=== PATIENT | female | born 2000 | race Caucasian/White ===

== ENCOUNTER 2022-03-12 12:16 | Emergency (ER) | payer BC ==
[2022-03-12 12:23] VITALS: RESP 18
[2022-03-12] MEDS ORDERED: SODIUM CHLORIDE 0.9% 500 ML 500 ML IV STA (12:32)
[2022-03-12 12:50] LABS: Basophils # (A) 0.1 k/uL (0-0.2); Basophils % (A) 0 %; Eosinophils # (A) 0.2 k/uL (0-0.7); Eosinophils % (A) 1 %; HCT 44.3 % (34.0-46.0); HGB 14.9 gm/dL (11.4-16.0); Lymphocytes # (A) 1.5 k/uL (1.0-4.8); Lymphocytes % (A) 12 %; MCH 29.6 pg (25.0-35.0); MCHC 33.7 g/dL (31.0-37.0); Mean Platelet Volume 7.3; Monocytes # (A) 0.4 k/uL (0-1.0); Monocytes % (A) 3 %; Neutrophils # (A) 9.9 k/uL (1.3-7.7); Neutrophils % (A) 82 %; Platelet Count 257 k/uL (150-450); RBC 5.03 m/uL (3.80-5.40); RDW 12.2 % (11.5-15.5); WBC 12.1 k/uL (3.8-10.6)
--- NOTE | 2022-03-12 13:01 | ED ---
Seizure HPI - General Source: patient, EMS, RN notes reviewed Mode of arrival: EMS Limitations: no limitations <Shree Lynn - Last Filed: 03/12/22 15:16> <Tyson Ortiz - Last Filed: 03/12/22 15:34> - General Chief Complaint: Seizure Stated Complaint: seizure Time Seen by Provider: 03/12/22 12:24 - History of Present Illness Initial Comments: This is a 22-year-old female presents emergency Department chief complaint of seizure. Patient was brought in via EMS patient states she was in her room on her phone this is lasting she remembers. Patient was found by mother stating that she was having a tonic-clonic seizure. Patient did have noted tongue injury. Patient was postictal per EMS. Patient has no specific complaint other than mild headache currently. (Shree Lynn) - Related Data Allergies Allergy/AdvReac Type Severity Reaction Status Date / Time No Known Allergies Allergy Verified 03/12/22 12:23 Review of Systems ROS Other: All systems not noted in ROS Statement are negative. <Shree Lynn - Last Filed: 03/12/22 15:16> ROS Other: All systems not noted in ROS Statement are negative. <Tyson Ortiz - Last Filed: 03/12/22 15:34> ROS Statement: Those systems with pertinent positive or pertinent negative responses have been documented in the HPI. Past Medical History Past Medical History: No Reported History Additional Past Medical History / Comment(s): Seizure 03/12/2022 History of Any Multi-Drug Resistant Organisms: None Reported Past Surgical History: No Surgical Hx Reported Past Psychological History: No Psychological Hx Reported Smoking Status: Former smoker Past Alcohol Use History: Occasional, Rare Past Drug Use History: Marijuana <Shree Lynn - Last Filed: 03/12/22 15:16> General Exam Limitations: no limitations General appearance: alert, in no apparent distress Head exam: Present: atraumatic, normocephalic, normal inspection Eye exam: Present: normal appearance, PERRL, EOMI. Absent: scleral icterus, conjunctival injection, periorbital swelling ENT exam: Present: mucous membranes moist. Absent: normal oropharynx (Distal tongue injury primarily on the right) Neck exam: Present: normal inspection, full ROM. Absent: tenderness, meningismus, lymphadenopathy Respiratory exam: Present: normal lung sounds bilaterally. Absent: respiratory distress, wheezes, rales, rhonchi, stridor Cardiovascular Exam: Present: regular rate, normal rhythm, normal heart sounds. Absent: systolic murmur, diastolic murmur, rubs, gallop, clicks GI/Abdominal exam: Present: soft, normal bowel sounds. Absent: distended, tenderness, guarding, rebound, rigid Neurological exam: Present: alert, oriented X3, CN II-XII intact, reflexes normal. Absent: motor sensory deficit Skin exam: Present: warm, dry, intact, normal color. Absent: rash <Shree Lynn - Last Filed: 03/12/22 15:16> Course Vital Signs 03/12/22 03/12/22 12:19 14:30 Pulse Rate 73 Respiratory 18 18 Rate Blood Pressure 133/95 131/77 O2 Sat by Pulse 98 98 Oximetry Medical Decision Making - Lab Data Result diagrams: 03/12/22 12:42 03/12/22 12:42 - EKG Data -: EKG Interpreted by Me <Shree Lynn - Last Filed: 03/12/22 15:16> - Lab Data Result diagrams: 03/12/22 12:42 03/12/22 12:42 <Tyson Ortiz - Last Filed: 03/12/22 15:34> - Lab Data Lab Results 03/12/22 03/12/22 03/12/22 Range/Units 12:42 12:42 14:54 WBC 12.1 H (3.8-10.6) k/uL RBC 5.03 (3.80-5.40) m/uL Hgb 14.9 (11.4-16.0) gm/dL Hct 44.3 (34.0-46.0) % MCV 88.0 (80.0-100.0) fL MCH 29.6 (25.0-35.0) pg MCHC 33.7 (31.0-37.0) g/dL RDW 12.2 (11.5-15.5) % Plt Count 257 (150-450) k/uL MPV 7.3 Neutrophils % 82 % Lymphocytes % 12 % Monocytes % 3 % Eosinophils % 1 % Basophils % 0 % Neutrophils # 9.9 H (1.3-7.7) k/uL Lymphocytes # 1.5 (1.0-4.8) k/uL Monocytes # 0.4 (0-1.0) k/uL Eosinophils # 0.2 (0-0.7) k/uL Basophils # 0.1 (0-0.2) k/uL Sodium 135 L (137-145) mmol/L Potassium 4.8 (3.5-5.1) mmol/L Chloride 110 H (98-107) mmol/L Carbon Dioxide 15 L (22-30) mmol/L Anion Gap 10 mmol/L BUN 16 (7-17) mg/dL Creatinine 0.83 (0.52-1.04) mg/dL Est GFR (CKD-EPI)AfAm >90 (>60 ml/min/1.73 sqM) Est GFR (CKD-EPI)NonAf >90 (>60 ml/min/1.73 sqM) Glucose 233 H (74-99) mg/dL Calcium 9.0 (8.4-10.2) mg/dL Magnesium 2.0 (1.6-2.3) mg/dL Total Bilirubin 0.7 (0.2-1.3) mg/dL AST 32 (14-36) U/L ALT 26 (4-34) U/L Alkaline Phosphatase 73 (38-126) U/L Total Protein 7.1 (6.3-8.2) g/dL Albumin 4.3 (3.5-5.0) g/dL Urine Color Light Yellow Urine Appearance Cloudy H (Clear) Urine pH 6.5 (5.0-8.0) Ur Specific [place] 1.015 (1.001-1.035) Urine Protein Trace H (Negative) Urine Glucose (UA) 3+ H (Negative) Urine Ketones 1+ H (Negative) Urine Blood Negative (Negative) Urine Nitrite Negative (Negative) Urine Bilirubin Negative (Negative) Urine Urobilinogen <2.0 (<2.0) mg/dL Ur Leukocyte Esterase Negative (Negative) Urine RBC <1 (0-5) /hpf Urine WBC 2 (0-5) /hpf Ur Squamous Epith Cells 6 H (0-4) /hpf Amorphous Sediment Rare H (None) /hpf Urine Bacteria Occasional H (None) /hpf Urine Mucus Few H (None) /hpf Urine HCG, Qual (Not Detectd) 10/31/22 Range/Units 14:54 WBC (3.8-10.6) k/uL RBC (3.80-5.40) m/uL Hgb (11.4-16.0) gm/dL Hct (34.0-46.0) % MCV (80.0-100.0) fL MCH (25.0-35.0) pg MCHC (31.0-37.0) g/dL RDW (11.5-15.5) % Plt Count (150-450) k/uL MPV Neutrophils % % Lymphocytes % % Monocytes % % Eosinophils % % Basophils % % Neutrophils # (1.3-7.7) k/uL Lymphocytes # (1.0-4.8) k/uL Monocytes # (0-1.0) k/uL Eosinophils # (0-0.7) k/uL Basophils # (0-0.2) k/uL Sodium (137-145) mmol/L Potassium (3.5-5.1) mmol/L Chloride (98-107) mmol/L Carbon Dioxide (22-30) mmol/L Anion Gap mmol/L BUN (7-17) mg/dL Creatinine (0.52-1.04) mg/dL Est GFR (CKD-EPI)AfAm (>60 ml/min/1.73 sqM) Est GFR (CKD-EPI)NonAf (>60 ml/min/1.73 sqM) Glucose (74-99) mg/dL Calcium (8.4-10.2) mg/dL Magnesium (1.6-2.3) mg/dL Total Bilirubin (0.2-1.3) mg/dL AST (14-36) U/L ALT (4-34) U/L Alkaline Phosphatase (38-126) U/L Total Protein (6.3-8.2) g/dL Albumin (3.5-5.0) g/dL Urine Color Urine Appearance (Clear) Urine pH (5.0-8.0) Ur Specific [place] (1.001-1.035) Urine Protein (Negative) Urine Glucose (UA) (Negative) Urine Ketones (Negative) Urine Blood (Negative) Urine Nitrite (Negative) Urine Bilirubin (Negative) Urine Urobilinogen (<2.0) mg/dL Ur Leukocyte Esterase (Negative) Urine RBC (0-5) /hpf Urine WBC (0-5) /hpf Ur Squamous Epith Cells (0-4) /hpf Amorphous Sediment (None) /hpf Urine Bacteria (None) /hpf Urine Mucus (None) /hpf Urine HCG, Qual Not Detected (Not Detectd) - EKG Data EKG Comments: EKG interpreted by me at 12.37 sinus rhythm rate of 61. 139 QRS 80 QT/QTC 377/380 (Shree Lynn) Disposition Is patient prescribed a controlled substance at d/c from ED?: No Time of Disposition: 15:16 <Shree Lynn - Last Filed: 03/12/22 15:16> <Tyson Ortiz - Last Filed: 03/12/22 15:34> Clinical Impression: Generalized seizure, New onset seizure Disposition: HOME SELF-CARE Condition: Stable Instructions (If sedation given, give patient instructions): Seizure/Epilepsy Discharge Instructions & Follow-Up Additional Instructions: Please return to the Emergency Department if symptoms worsen or any other concerns. Referrals: None,Stated [Primary Care Provider] - 1-2 days
[2022-03-12 13:07] LABS: ALT 26 U/L (4-34); AST 32 U/L (14-36); African American GFR (CKD) >90 (>60 ml/min/1.73 sqM); Albumin 4.3 g/dL (3.5-5.0); Alkaline Phosphatase 73 U/L (38-126); Anion Gap 10 mmol/L; Blood Urea Nitrogen 16 mg/dL (7-17); Carbon Dioxide 15 mmol/L (22-30); Chloride 110 mmol/L (98-107); Glucose 233 mg/dL (74-99); Non-African American GFR(CKD) >90 (>60 ml/min/1.73 sqM); Potassium 4.8 mmol/L (3.5-5.1); Sodium 135 mmol/L (137-145); Total Bilirubin 0.7 mg/dL (0.2-1.3); Total Protein 7.1 g/dL (6.3-8.2)
[2022-03-12 14:37] VITALS: PULSE 73
--- NOTE | 2022-03-12 14:42 | CT ---
EXAMINATION TYPE: CT brain wo con DATE OF EXAM: 03/12/2022 COMPARISON: None. HISTORY: Seizure, fall. Memory loss after injury. CT DLP: 1102.5 mGycm. Automated Exposure Control for Dose Reduction was Utilized. TECHNIQUE: CT scan of the head is performed without contrast. FINDINGS: There is no acute intracranial hemorrhage, mass effect, or midline shift identified. The ventricles and sulci are within normal limits in size. Cohen-white matter differentiation is maintain ed. The calvarium is intact. The globes are intact and the visualized sinuses are clear. IMPRESSION: No acute intracranial hemorrhage or midline shift is seen.
[2022-03-12] MEDS ORDERED: KETOROLAC 15 MG/ML 1 ML VIAL IVP STA (14:44)
[2022-03-12 15:14] LABS: Amorphous Sediment,Urine Rare /hpf; Appearance,Urine Cloudy (Clear); Bacteria,Urine Occasional /hpf; Bilirubin,Urine Negative (Negative); Blood,Urine Negative (Negative); Color,Urine Light Yellow; Glucose,Urine (UA) 3+ (Negative); Ketones,Urine 1+ (Negative); Leukocyte Esterase,Urine Negative (Negative); Mucus,Urine Few /hpf; Nitrite,Urine Negative (Negative); PH, Urine 6.5 (5.0-8.0); Protein,Urine Trace (Negative); RBC,Urine <1 /hpf (0-5); Specific Gravity,Urine 1.015 (1.001-1.035); Squamous Epithelial Cell,Urine 6 /hpf (0-4); Urobilinogen,Urine <2.0 mg/dL (<2.0); WBC,Urine 2 /hpf (0-5)
[2022-03-12 15:48] VITALS: BP 126/67; TEMP 98.1
== END 2022-03-12 15:48 | disposition home or self-care (01) ==
LOC: EC 12:16
DX: R56.9 Unspecified convulsions (principal); Z87.891 Personal history of nicotine dependence
CPT/HCPCS: 36415; 93005; 80053; 83735; 85025; 81001; 81025; 83036; 70450; 99285; 96374; 96361; J1885

== ENCOUNTER 2022-03-13 01:51 | Inpatient (IN) | payer BC ==
[2022-03-13] MEDS ORDERED: levETIRAcetam IV 1,000 MG in SALINE 1 100ML.BAG IVPB STA (02:17)
[2022-03-13] MEDS ORDERED: ONDANSETRON 4 MG/2 ML VIAL IVP PRN (02:17)
[2022-03-13] MEDS ORDERED: NALOXONE 0.4 MG/ML 1 ML VIAL IV PRN (02:17)
[2022-03-13] MEDS ORDERED: SODIUM CHLORIDE 0.9% 1,000 ML IV STA (02:17)
--- NOTE | 2022-03-13 02:24 | ED ---
Seizure HPI - General Chief Complaint: Seizure Stated Complaint: Seizure Time Seen by Provider: 03/13/22 02:04 Source: EMS, RN notes reviewed, old records reviewed Mode of arrival: EMS Limitations: no limitations - History of Present Illness Initial Comments: This is a 22-year-old female to the emergency department for evaluation patient Dese for evaluation regards seizure this is new onset seizure for this patient she had a seizure earlier today as well. A she does not take any medications does not do drugs or alcohol no history of head trauma or injury. Patient denying her current headache or fever. MD Complaint: seizure, loss of consciousness, shaking -: minutes(s) Description of Episode: loss of consciousness, tonic-clonic movement, post-event confusion -: second(s) Witnessed: yes - by bystander Trauma: Yes Seizure History: known seizure disorder Place: home Possible Precipitating Event: none Associated Symptoms: denies other symptoms Treatments Prior to Arrival: none - Related Data Allergies Allergy/AdvReac Type Severity Reaction Status Date / Time No Known Allergies Allergy Verified 03/13/22 01:53 Review of Systems ROS Statement: Those systems with pertinent positive or pertinent negative responses have been documented in the HPI. ROS Other: All systems not noted in ROS Statement are negative. Past Medical History Past Medical History: No Reported History Additional Past Medical History / Comment(s): Seizure 03/12/2022 History of Any Multi-Drug Resistant Organisms: None Reported Past Surgical History: No Surgical Hx Reported Past Psychological History: No Psychological Hx Reported Smoking Status: Vaper Past Alcohol Use History: Occasional, Rare Past Drug Use History: Marijuana General Exam Limitations: no limitations General appearance: alert, in no apparent distress Head exam: Present: atraumatic, normocephalic, normal inspection Eye exam: Present: normal appearance, PERRL, EOMI. Absent: scleral icterus, conjunctival injection, periorbital swelling ENT exam: Present: normal exam, mucous membranes moist Neck exam: Present: normal inspection. Absent: tenderness, meningismus, lymphadenopathy Respiratory exam: Present: normal lung sounds bilaterally. Absent: respiratory distress, wheezes, rales, rhonchi, stridor Cardiovascular Exam: Present: regular rate, normal rhythm, normal heart sounds. Absent: systolic murmur, diastolic murmur, rubs, gallop, clicks GI/Abdominal exam: Present: soft, normal bowel sounds. Absent: distended, tenderness, guarding, rebound, rigid Extremities exam: Present: normal inspection, full ROM, normal capillary refill. Absent: tenderness, pedal edema, joint swelling, calf tenderness Back exam: Present: normal inspection Neurological exam: Present: alert, oriented X3, CN II-XII intact Psychiatric exam: Present: normal affect, normal mood Skin exam: Present: warm, dry, intact, normal color. Absent: rash Course Vital Signs 03/13/22 01:54 Temperature 97.9 F Pulse Rate 85 Respiratory 16 Rate Blood Pressure 120/90 O2 Sat by Pulse 98 Oximetry - Reevaluation(s) Reevaluation #1: 03/13/22 02:22 Medical records reviewed Reevaluation #2: 03/13/22 02:22 Patient informed results and questions answered Reevaluation #3: 03/13/22 02:22 No recurrent seizure here in the ER - Consultations Consultation #1: Spoke with admitting physicians, greater admit the patient Medical Decision Making - Medical Decision Making 22 female with her second seizure today. Patient presents today for evaluation regarding seizure. Patient be admitted for new onset seizure and neurology evaluation and treatment Disposition Clinical Impression: Status epilepticus, New onset seizure, Generalized seizure Disposition: ADMITTED IP TO THIS HOSP Condition: Fair Instructions (If sedation given, give patient instructions): Seizure/Epilepsy Discharge Instructions & Follow-Up Is patient prescribed a controlled substance at d/c from ED?: No Referrals: None,Stated [Primary Care Provider] - 1-2 days Time of Disposition: 02:45
[2022-03-13 02:45] LABS: Basophils # (A) 0.1 k/uL (0-0.2); Basophils % (A) 0 %; Eosinophils # (A) 0.1 k/uL (0-0.7); Eosinophils % (A) 0 %; HCT 44.7 % (34.0-46.0); HGB 14.6 gm/dL (11.4-16.0); Lymphocytes # (A) 1.6 k/uL (1.0-4.8); Lymphocytes % (A) 8 %; MCH 29.1 pg (25.0-35.0); MCHC 32.8 g/dL (31.0-37.0); Monocytes # (A) 0.9 k/uL (0-1.0); Monocytes % (A) 4 %; Neutrophils # (A) 16.5 k/uL (1.3-7.7); Neutrophils % (A) 86 %; Platelet Count 243 k/uL (150-450); RBC 5.02 m/uL (3.80-5.40); RDW 12.2 % (11.5-15.5); WBC 19.3 k/uL (3.8-10.6)
[2022-03-13 03:26] LABS: ALT 28 U/L (4-34); AST 49 U/L (14-36); Acetaminophen <10.0 ug/mL; African American GFR (CKD) >90 (>60 ml/min/1.73 sqM); Albumin 4.4 g/dL (3.5-5.0); Alcohol <10 mg/dL; Alkaline Phosphatase 63 U/L (38-126); Anion Gap 17 mmol/L; Blood Urea Nitrogen 12 mg/dL (7-17); Calcium 8.8 mg/dL (8.4-10.2); Carbon Dioxide 11 mmol/L (22-30); Chloride 106 mmol/L (98-107); Glucose 185 mg/dL (74-99); Magnesium 2.1 mg/dL (1.6-2.3); Non-African American GFR(CKD) >90 (>60 ml/min/1.73 sqM); Salicylate <1.0 mg/dL; Sodium 134 mmol/L (137-145); Total Bilirubin 0.9 mg/dL (0.2-1.3); Total Protein 7.6 g/dL (6.3-8.2)
[2022-03-13 04:36] LABS: Potassium 4.8 mmol/L (3.5-5.1)
[2022-03-13 09:21] LABS: Appearance,Urine Clear (Clear); Bilirubin,Urine Negative (Negative); Blood,Urine Negative (Negative); Color,Urine Light Yellow; Glucose,Urine (UA) Negative (Negative); Ketones,Urine 2+ (Negative); Leukocyte Esterase,Urine Negative (Negative); Nitrite,Urine Negative (Negative); PH, Urine 5.5 (5.0-8.0); Protein,Urine Negative (Negative); Urobilinogen,Urine <2.0 mg/dL (<2.0)
[2022-03-13 09:31] LABS: Amphetamine Screen,Urine Not Detected (NotDetected); Barbiturate Screen,Urine Not Detected (NotDetected); Benzodiazepines Screen,Urine Not Detected (NotDetected); Cocaine Screen,Urine Not Detected (NotDetected); Methadone Screen, Urine Not Detected (NotDetected); Opiate Screen,Urine Not Detected (NotDetected); Oxycodone Screen, Urine Not Detected (NotDetected); Phencyclidine Screen,Urine Not Detected (NotDetected); Tricyclic Antidepressant,Urine Not Detected (NotDetected); Urn Cannabinoid Scrn Detected (NotDetected)
[2022-03-13] MEDS ORDERED: KETOROLAC 15 MG/ML 1 ML VIAL IVP PRN (11:46)
--- NOTE | 2022-03-13 12:07 | EEG ---
ELECTROENCEPHALOGRAM REPORT PREAMBLE: This is a 22-year-old female with new onset seizure. EEG FINDINGS: This is a 21-channel digital EEG recorded with video component, utilizing 10/20 international system with referential and bipolar montages. Background consists of well developed, well regulated moderate voltage activity in 9 to 10 hertz alpha. Background is posterior dominant and reactive to eye opening and closing. The frequent movement artifact was seen during the study. Hyperventilation revealed no abnormalities. Photic driving response was not seen. Some drowsiness was seen with appearance of bilaterally symmetric theta frequency rhythm. Deeper stages of sleep were not seen. Some intermittent bitemporal dysrhythmic theta, with occasional sharply contoured waves seen on the left side. No clearcut epileptiform activity was seen. EKG channel showed no obvious arrhythmia. IMPRESSION: This is a borderline abnormal EEG due to presence of intermittent dysrhythmic theta seen in bitemporal region, with rare sharply contoured waves on the left side. This suggests focal cortical neuronal dysfunction. Recommend prolonged, sleep- deprived EEG. MMODL / IJN: [id number] / [facility]
--- NOTE | 2022-03-13 12:36 | P.HPIM ---
History of Present Illness Patient is a pleasant 22-year-old female came in with the comments of seizure patient had 2 similar episodes although there was no evidence of tonic-clonic activity that was witnessed by the family members patient doesn't know anything anything of what happened. Patient woke up in the ambulance. History was often from the mother as well and patient apparently had a loss bladder incontinence and does have tongue biting. Patient was confused and post ictal for few hours after the episode. Patient doesn't have any history of seizures denied any childhood history of seizures. Patient does have anion gap probably been second tonya to lactic acidosis although lactic acid was never obtain any her serum sodium is 134. Patient does have history of marijuana use denied any other drug abuse or alcohol use. REVIEW OF SYSTEMS: CONSTITUTIONAL: No fever, no malaise, no fatigue. HEENT: No recent visual problems or hearing problems. Denied any sore throat. CARDIOVASCULAR: No chest pain, orthopnea, PND, no palpitations, no syncope. PULMONARY: No shortness of breath, no cough, no hemoptysis. GASTROINTESTINAL: No diarrhea, no nausea, no vomiting, no abdominal pain. NEUROLOGICAL: No headaches, no weakness, no numbness. HEMATOLOGICAL: Denies any bleeding or petechiae. GENITOURINARY: Denies any burning micturition, frequency, or urgency. MUSCULOSKELETAL/RHEUMATOLOGICAL: Denies any joint pain, swelling, or any muscle pain. ENDOCRINE: Denies any polyuria or polydipsia. The rest of the 14-point review of systems is negative. PHYSICAL EXAMINATION: GENERAL: The patient is alert and oriented x3, not in any acute distress. Well developed, well nourished. HEENT: Pupils are round and equally reacting to light. EOMI. No scleral icterus. No conjunctival pallor. Normocephalic, atraumatic. No pharyngeal erythema. No thyromegaly. CARDIOVASCULAR: S1 and S2 present. No murmurs, rubs, or gallops. PULMONARY: Chest is clear to auscultation, no wheezing or crackles. ABDOMEN: Soft, nontender, nondistended, normoactive bowel sounds. No palpable organomegaly. MUSCULOSKELETAL: No joint swelling or deformity. EXTREMITIES: No cyanosis, clubbing, or pedal edema. NEUROLOGICAL: Gross neurological examination did not reveal any focal deficits. SKIN: No rashes. Assessment and plan -New-onset seizures patient probably has a primary seizure disorder patient underwent EEG results of which are pending will be evaluated with neurology patient was given a dose of Keppra may need to be discharged on Keppra. If jesica red by neurology without any further workup patient will be discharged today to follow up with neurology as an outpatient to continue further workup as an outpatient. -Anion gap metabolic acidosis secondary to lactic acidosis most probably secondary to seizures. -Leukocytosis reactive secondary to seizure -Hyponatremia secondary to hypovolemia patient is receiving IV fluids DVT prophylaxis: Early ambulation Past Medical History Past Medical History: No Reported History Additional Past Medical History / Comment(s): Seizure 03/12/2022 History of Any Multi-Drug Resistant Organisms: None Reported Past Surgical History: No Surgical Hx Reported Past Psychological History: No Psychological Hx Reported Smoking Status: Vaper Past Alcohol Use History: Occasional, Rare Past Drug Use History: Marijuana - Past Family History Father Family Medical History: Myocardial Infarction ([place]) Additional Family Medical History / Comment(s): MULTIPLE HEART ATTACKS Medications and Allergies Home Medications Medication Instructions Recorded Confirmed Type No Known Home Medications 03/13/22 03/13/22 History Allergies Allergy/AdvReac Type Severity Reaction Status Date / Time No Known Allergies Allergy Verified 03/13/22 07:39 Physical Exam Vitals: Vital Signs Temp Pulse Pulse Resp BP BP Pulse Ox 03/13/22 07:58 98.6 F 93 18 104/56 98 03/13/22 04:15 18 03/13/22 02:44 75 18 114/86 98 03/13/22 01:54 97.9 F 85 16 120/90 98 Intake and Output 03/12/22 03/13/22 03/13/22 22:59 06:59 14:59 Intake Total 200 Balance 200 Intake: Oral 200 Other: Voiding Method Toilet # Voids 1 # Bowel Movements 0 Weight 77.111 kg Results CBC & Chem 7: 03/13/22 02:23 03/13/22 02:23 Labs: Abnormal Lab Results - Last 24 Hours (Table) 03/13/22 03/13/22 03/13/22 Range/Units 02:23 02:23 09:09 WBC 19.3 H (3.8-10.6) k/uL Neutrophils # 16.5 H (1.3-7.7) k/uL Sodium 134 L (137-145) mmol/L Carbon Dioxide 11 L (22-30) mmol/L Glucose 185 H (74-99) mg/dL AST 49 H (14-36) U/L Urine Ketones 2+ H (Negative) U Marijuana (THC) Screen Detected H (NotDetected)
--- NOTE | 2022-03-13 13:59 | P.CNNES ---
History of Present Illness Consult date: 03/13/22 Requesting physician: Tyson Casiano Reason for Consult: New seizure History of Present Illness: Patient is a 22-year-old right-handed female came to the hospital by ambulance early this morning at 1:51 AM for a second seizure. Patient had her first seizure yesterday at 11 AM while she was sleeping. She woke up in the hospital. Patient's mother states that she heard a fall and when she went in, patient was having a tonic-clonic seizure, that lasted for 1-2 minutes. She had fallen off, and hit head-on side of the bed. Patient's mother was not sure, if she was standing, or she just fell off the bed from the seizure. She was brought to the hospital by ambulance. She had computed tomography scan of the head, observed and then sent home to follow-up with a neurologist. However early this morning at around 1:20 AM, she had a second seizure. Patient's mother heard a fall and then she went in, she was having a seizure, that lasted for about a minute. Patient did bite her tongue and lost control of urine with both of these seizures. Patient states that she woke up in the ambulance with his current seizure. Patient's mother states that this second seizure was milder as compared to the first one yesterday. As per EMS flow sheet, when they arrived, patient's mother mentioned that patient had a seizure approximately 10-15 minutes prior to EMS arrival. This is a second seizure the patient has experienced today. She was discharged from the ER earlier. When EMS arrived, patient was in a postictal state. Patient began acting appropriately after oxygen was given although she did seem agitated. Crew found marijuana/pipe next to patient's bed, when asked about drug use, patient denied use. Patient's blood pressure was 107/52 pulse rate 84 respiration 18 saturation 98% and blood sugar 175. Patient's blood test shows CBC 19.3 hemoglobin 14.6 platelets are normal. Sodium 134 potassium 4.8, normal renal functions. AST is 49, ALT 28. UA is negative. Urine drug screen positive for marijuana. Blood alcohol level is less than 10. Hemoglobin A1c 5.8. CT head showed no acute intracranial hemorrhage or midline shift. I personally reviewed CT head, agree with the findings. EKG shows sinus rhythm with sinus arrhythmia. Patient does not take any medication at home. Patient denies any history of concussion. No fever or chills. Patient has a 28-year-old sister, who had seizures about 2 or 3 when she was age 13. She was placed on medication for some time and was taken off. She has not had any seizures since then, currently not on any seizure medication. No other family members with seizure. Patient vapes tobacco and one last for about 3 weeks. She has been smoking marijuana since seventh grade. She smokes about 1 g a day. She denies any change in the brand of for marijuana. Never use any prescription medication or any other drugs. She drinks alcohol very occasionally. Review of Systems Constitutional: Denies chills, Denies fever Eyes: denies blurred vision, denies pain Ears, nose, mouth and throat: Denies headache, Denies sore throat Cardiovascular: Denies chest pain, Denies shortness of breath Respiratory: Denies cough, Denies wheezing Gastrointestinal: Denies abdominal pain, Denies diarrhea, Denies nausea, Denies vomiting Genitourinary: Denies dysuria, Denies hematuria Musculoskeletal: Denies myalgias Integumentary: Denies pruritus, Denies rash Neurological: Reports as per HPI, Denies balance difficulties, Denies confusion, Denies memory loss, Denies visual changes Psychiatric: Denies anxiety, Denies depression Endocrine: Denies fatigue, Denies weight change Hematologic/Lymphatic: Denies easy bruising Allergic/Immunologic: Denies gluten intolerance Past Medical History Past Medical History: No Reported History Additional Past Medical History / Comment(s): Seizure 03/12/2022 History of Any Multi-Drug Resistant Organisms: None Reported Past Surgical History: No Surgical Hx Reported Past Psychological History: No Psychological Hx Reported Smoking Status: Vaper Past Alcohol Use History: Occasional, Rare Past Drug Use History: Marijuana - Past Family History Father Family Medical History: Myocardial Infarction ([place]) Additional Family Medical History / Comment(s): MULTIPLE HEART ATTACKS Medications and Allergies Home Medications Medication Instructions Recorded Confirmed Type No Known Home Medications 03/13/22 03/13/22 History Allergies Allergy/AdvReac Type Severity Reaction Status Date / Time No Known Allergies Allergy Verified 03/13/22 07:39 Physical Examination - Vital Signs Vital Signs: Vital Signs Temp Pulse Pulse Resp BP BP Pulse Ox 03/13/22 07:58 98.6 F 93 18 104/56 98 03/13/22 04:15 18 03/13/22 02:44 75 18 114/86 98 03/13/22 01:54 97.9 F 85 16 120/90 98 Intake and Output 03/12/22 03/13/22 03/13/22 22:59 06:59 14:59 Intake Total 200 Balance 200 Intake: Oral 200 Other: Voiding Method Toilet # Voids 1 # Bowel Movements 0 Weight 77.111 kg Patient is a young female, very pleasant in no acute distress. Patient is alert awake oriented to time place and person. Speech and language functions are normal. Patient can name and repeat very well. No aphasia or dysarthria. Attention, concentration and fund of knowledge is adequate. On cranial nerve examination, pupils are equal, round and reacting to light, visual espinal are full on confrontation, with no neglect on double simultaneous stimulation. Extraocular muscles are intact with no nystagmus. Face is symmetric, tongue protrudes to the midline. Palatal elevation and sensation normal, hearing and shoulder shrug normal, facial sensation normal. There is evidence of tongue bite sindy on the right side. On muscle strength testing, there is no pronator drift and the strength is normal in arms and legs distally and proximally. Deep tendon reflexes are symmetric 1 at the biceps, 1 brachioradialis, 2 at the knees, 1+ ankles and plantars downgoing bilaterally. Sensory to touch is equal with no neglect on double simultaneous stimulation. Cerebellar function showed no ataxia for paexmz-cd-ygdg testing. No dysdiadochokinesia. No ataxia for nnrp-be-leod testing on either side. Tone and bulk of muscles normal. Gait deferred.. On general examination, there is no carotid bruit or murmur, S1-S2 audible. Chest is clear on consultation. Abdomen is soft nontender. No organomegaly, bowel sounds present. Peripheral pulses are present. No edema. Results - Laboratory Findings CBC and BMP: 03/13/22 02:23 03/13/22 02:23 Abnormal Lab Findings: Abnormal Labs 03/13/22 03/13/22 03/13/22 02:23 02:23 09:09 WBC 19.3 H Neutrophils # 16.5 H Sodium 134 L Carbon Dioxide 11 L Glucose 185 H AST 49 H Urine Ketones 2+ H U Marijuana (THC) Screen Detected H Assessment and Plan Assessment: * New onset seizure, unclear etiology. Possible idiopathic, rule out secondary causes. No obvious provoking factor identified. * Family history of seizure in her sister at her age 13, now in remission. * Marijuana use * Vaping Plan: * Patient had an EEG performed today, which was mildly abnormal because of intermittent bitemporal L>R dysrhythmic theta, with rare sharp-appearing waves on the left side. This may suggest focal cortical neuronal dysfunction. Recommend prolonged EEG for further evaluation. * MRI of the brain with and without contrast rule out secondary causes. * Patient will be started on Keppra 500 mg twice a day. Recommend patient follow up with neurologist as an outpatient. * Patient informed of [place] state law of no driving unless seizure free for 6 months, climbing ladders or operating dangerous machinery. * Neurologically clear, if the MRI comes back negative. Discussed with primary team. Thank you for the consult. Time with Patient: Greater than 30
[2022-03-13] MEDS: levETIRAcetam 500 MG TAB PO SCH ×2 (16:33→23:47)
[2022-03-13] MEDS: FAMOTIDINE 20 MG TAB PO SCH (23:47)
[2022-03-13] MEDS: SODIUM CHLORIDE 0.9% 1,000 ML IV SCH ×2 (23:48→23:49)
[2022-03-14] MEDS: SODIUM CHLORIDE 0.9% 1,000 ML IV SCH (06:32)
[2022-03-14] MEDS: levETIRAcetam 500 MG TAB PO SCH (07:42)
[2022-03-14] MEDS: FAMOTIDINE 20 MG TAB PO SCH (07:42)
[2022-03-14 09:35] VITALS: BP 130/66; PULSE 64; RESP 17; TEMP 98.2
--- NOTE | 2022-03-14 11:15 | MR ---
EXAMINATION TYPE: MR brain wo/w con DATE OF EXAM: 03/14/2022 COMPARISON: CT brain March 12, 2022 HISTORY: New onset seizure. TECHNIQUE: Multiplanar, multisequence images of the brain and brainstem is performed without and with IV contras t, utilizing 7.5 mL intravenous Gadavist . FINDINGS: Diffusion weighted images demonstrate no evidence of a recent infarct or other diffusion ab normality. There is no extra-axial fluid collection or significant white matter signal abnormality. The ventricular system and cisternal spaces are normal in size and appearance. The brain volume is age appropriate. T2 Star weighted images show no suspicious intraparenchymal blood product. T2 taylor l weighted images show hippocampal gyri to appear symmetric and felt within normal limits. Midline structures demonstrate normal morphology. The craniocervical junction appears within normal limits. Post contrast images demonstrate no abnormal enhancing masses. There is asymmetric left-side d inferior temporal vessel axial image 5 thought to reflect incidental venous angioma. The dural veno us sinuses appear patent. The visualized sinuses are clear and the globes are intact. Patchy fluid ri ght mastoid air cells is present. Correlate clinically to exclude right-sided mastoiditis. IMPRESSION: No suspicious mass or abnormal parenchymal area in the brain identified to account for pa tient symptoms of new onset seizures
--- NOTE | 2022-03-16 09:49 | P.DS ---
Providers Date of admission: 03/13/22 02:17 Expected date of discharge: 03/14/22 Attending physician: Beverly Rushing Consults: 03/13/22 02:17 Consult Physician Routine Consulting Provider: Servando Salazar Consult Reason/Comments: [place] Do you want consulting provider notified?: Yes Primary care physician: Stated None Hospital Course: Final diagnosis New onset seizures, patient probably has a primary seizure disorder and undergoing neurological workup. MRI was negative Anion gap metabolic acidosis secondary to lactic acidosis, secondary to seizures leukocytosis, reactive secondary to seizures hyponatremia secondary to hypovolemia, improved DVT prophylaxis Full code Discharge disposition Patient is being discharged in a stable condition with guarded prognosis to home . Patient will follow-up with Dr. Leo in the outpatient setting upon discharge. Patient is to also follow-up with neurology as scheduled. Patient will continue on Keppra 500 mg twice daily until follow-up with neurology. Total time taken is greater than 35 minutes. Hospital course This is a 22-year-old female who was recently admitted with seizure new onset witnessed by family members and was being closely monitored. Patient underwent neurological evaluation including MRI of the brain which was negative for any acute process. Patient was started on Keppra 500 mg twice daily and will continue until outpatient follow-up with neurology. EEG was abnormal in the presence of intermittent dysrhythmic theta suggesting focal cortical neuronal dysfunction recommending prolonged EEG in the outpatient setting. Neurology has cleared the patient for discharge recommending follow-up in the next 1-2 weeks. No further seizure-like activity noted during hospitalization. Patient reports to feeling well and would like to go home. Currently no reports of chest pain, shortness of breath, or palpitations. Patient is afebrile. No reports of nausea or vomiting and patient is tolerating diet. Patient will be discharged home today. Physical exam: Gen: This is a 22-year-old female awake, alert and oriented 3, well-developed, well-nourished HEENT: Head is atraumatic, normocephalic. Pupils equal, round. Sclerae is anicteric. NECK: Supple. No JVD. No lymphadenopathy. No thyromegaly. LUNGS: Clear to auscultation. No wheezes or rhonchi. No intercostal retractions. HEART: Regular rate and rhythm. No murmur. ABDOMEN: Soft. Bowel sounds are present. No masses. No tenderness. EXTREMITIES: No pedal edema. No calf tenderness. NEUROLOGICAL: Patient is awake, alert and oriented x3. Cranial nerves 2 through 12 are grossly intact. Please refer to medication reconciliation sheet for a list of medications. The impression and plan of care has been dictated by Roz Clifford, Nurse Practitioner as directed. Dr. Sulema MD I have performed a history and examination and MDM of this patient, discussed the same with the dictator, and agree with the dictator's assessment and plan as written ,documented as a scribe. Based on total visit time, I have performed more than 50% of the visit. Patient Condition at Discharge: Stable Plan - Discharge Summary Discharge Rx Participant: No New Discharge Prescriptions: New levETIRAcetam [Keppra] 500 mg PO Q12HR 30 Days #60 tab Discharge Medication List levETIRAcetam [Keppra] 500 mg PO Q12HR 30 Days #60 tab 03/14/22 [Rx] Follow up Appointment(s)/Referral(s): Abdiaziz Wright MD [REFERRING] - 1 Week Dalila Leo MD [STAFF PHYSICIAN] - 1 Week Patient Instructions/Handouts: Seizure/Epilepsy Discharge Instructions & Follow-Up Activity/Diet/Wound Care/Special Instructions: Activity Limited until follow-up Follow-up with primary care provider on discharge Follow-up with neurology in 1-2 weeks Continue taking medications as prescribed Discharge Disposition: HOME SELF-CARE
== END 2022-03-14 13:00 | disposition home or self-care (01) | DRG 101 ==
LOC: EC 01:51 → 4SSUR 02:17
PROVIDERS: ADMIT Hospitalist; ATTEND Hospitalist
PROC: 4A10X4Z Monitoring of Central Nervous Electrical Activity, External Approach (ICD-10-PCS; principal; 2022-03-13)
DX: G40.401 Other generalized epilepsy and epileptic syndromes, not intractable, with status epilepticus (principal); E87.20 Acidosis, unspecified; E87.1 Hypo-osmolality and hyponatremia; F17.290 Nicotine dependence, other tobacco product, uncomplicated; E86.1 Hypovolemia; F12.90 Cannabis use, unspecified, uncomplicated; D72.829 Elevated white blood cell count, unspecified; R32 Unspecified urinary incontinence; Z82.49 Family history of ischemic heart disease and other diseases of the circulatory system
CPT/HCPCS: 36415; 70553; 80053; 80143; 80179; 80306; 80320; 81003; 83735; 85025; 93005; 95816; 96361; 96374; 99285

== ENCOUNTER 2024-06-07 23:45 | Emergency (ER) | payer BC ==
--- NOTE | 2024-06-07 23:56 | ED ---
Seizure HPI - General Chief Complaint: Seizure Stated Complaint: Seizures Time Seen by Provider: 06/07/24 23:56 Source: patient, RN notes reviewed, old records reviewed Mode of arrival: ambulatory Limitations: no limitations - History of Present Illness Initial Comments: This is a 24-year-old female to the ER for evaluation of seizure with headache. Patient states she has had seizure-like activity throughout the day after the seizure she states she does feel to feel numbness and tingling on her right side may be a new finding for this patient. Patient's been taking all seizure medication to break as prescribed. Patient is on Keppra. She has had seizure diagnosis for about 2 years and an increase in seizure medication dosing around 8 months ago. Otherwise no recent illnesses no other complaints no fevers head injury patient does admit to marijuana no other drugs or alcohol MD Complaint: seizure, shaking -: hour(s) Description of Episode: loss of consciousness, bladder incontinence, post-event confusion -: second(s) Witnessed: yes - by bystander Trauma: Yes Seizure History: known seizure disorder Place: home Possible Precipitating Event: none Associated Symptoms: denies other symptoms - Related Data Previous Rx's Medication Instructions Recorded levETIRAcetam [Keppra] 500 mg PO Q12HR 30 Days #60 tab 03/14/22 Allergies Allergy/AdvReac Type Severity Reaction Status Date / Time No Known Allergies Allergy Verified 06/07/24 23:52 Review of Systems ROS Statement: Those systems with pertinent positive or pertinent negative responses have been documented in the HPI. ROS Other: All systems not noted in ROS Statement are negative. Past Medical History Past Medical History: No Reported History Additional Past Medical History / Comment(s): Seizure 03/12/2022 History of Any Multi-Drug Resistant Organisms: None Reported Past Surgical History: No Surgical Hx Reported Past Psychological History: No Psychological Hx Reported Smoking Status: Vaper Past Alcohol Use History: Occasional, Rare Past Drug Use History: Marijuana - Past Family History Father Family Medical History: Myocardial Infarction ([place]) Additional Family Medical History / Comment(s): MULTIPLE HEART ATTACKS General Exam Limitations: no limitations General appearance: alert, in no apparent distress Head exam: Present: atraumatic, normocephalic, normal inspection Eye exam: Present: normal appearance, PERRL, EOMI. Absent: scleral icterus, conjunctival injection, periorbital swelling ENT exam: Present: normal exam, mucous membranes moist Neck exam: Present: normal inspection. Absent: tenderness, meningismus, lymphadenopathy Respiratory exam: Present: normal lung sounds bilaterally. Absent: respiratory distress, wheezes, rales, rhonchi, stridor Cardiovascular Exam: Present: regular rate, normal rhythm, normal heart sounds. Absent: systolic murmur, diastolic murmur, rubs, gallop, clicks GI/Abdominal exam: Present: soft, normal bowel sounds. Absent: distended, tenderness, guarding, rebound, rigid Extremities exam: Present: normal inspection, full ROM, normal capillary refill. Absent: tenderness, pedal edema, joint swelling, calf tenderness Back exam: Present: normal inspection Neurological exam: Present: alert, oriented X3, CN II-XII intact Psychiatric exam: Present: normal affect, normal mood Skin exam: Present: warm, dry, intact, normal color. Absent: rash Course Vital Signs 06/07/24 23:47 Temperature 99.0 F Pulse Rate 112 H Respiratory 20 Rate Blood Pressure 158/100 O2 Sat by Pulse 99 Oximetry - Reevaluation(s) Reevaluation #1: 06/08/24 00:07 Medical records reviewed Reevaluation #2: 06/08/24 00:07 No recurrent seizure here in the ER Reevaluation #3: 06/08/24 00:38 No recurrent seizure here in the ER Reevaluation #4: Was pt. sent in by a medical professional or institution ([facility]IM[facility] Bills, [employer]IC, urgent care, hospital, or usp...) When possible be specific @ -no Did you speak to anyone other than the patient for history (EMS, parent, family, police, friend...)? What history was obtained from this source @ -no Did you review nursing and triage notes (agree or disagree)? Why? @ -agree Are old charts reviewed (outside hosp., previous admission, EMS record, old EKG, old radiological studies, urgent care reports/EKG's, usp records)? Report findings @ -yes Differential Diagnosis (chest pain, altered mental status, abdominal pain women, abdominal pain men, vaginal bleeding, weakness, fever, dyspnea, syncope, headache, dizziness, GI bleed, back pain, seizure, CVA, palpatations, mental health, musculoskeletal)? @ -prior EKG interpreted by me (3pts min.). @ -yes X-rays interpreted by me (1pt min.). @ -yes negative for acute disease CT interpreted by me (1pt min.). @ -no U/S interpreted by me (1pt. min.). @ -no What testing was considered but not performed or refused? (CT, X-rays, U/S, labs)? Why? @ -none What meds were considered but not given or refused? Why? @ -none Did you discuss the management of the patient with other professionals (professionals i.e. , PA, AREA MECHANIC, lab, RT, psych nurse, social media specialist, arson investigator, teacher, public relations officer, case management coordinator)? Give summary @ -no Was smoking cessation discussed for >3mins.? @ -no Was critical care preformed (if so, how long)? @ -no Were there social determinants of health that impacted care today? How? (Homelessness, low income, unemployed, alcoholism, drug addiction, transportation, low edu. Level, literacy, decrease access to med. care, prison, rehab)? @ -none Was there de-escalation of care discussed even if they declined (Discuss DNR or withdrawal of care, Hospice)? DNR status @ -no What co-morbidities impacted this encounter? (DM, HTN, Smoking, COPD, CAD, Cancer, CVA, ARF, Chemo, Hep., AIDS, mental health diagnosis, sleep apnea, morbid obesity)? @ -none Was patient admitted / discharged? Hospital course, mention meds given and route, prescriptions, significant lab abnormalities, going to OR and other pertinent info. @ - Undiagnosed new problem with uncertain prognosis? @ -no Drug Therapy requiring intensive monitoring for toxicity (Heparin, Nitro, Insulin, Cardizem)? @ -no Were any procedures done? @ -no Diagnosis/symptom? @ - Acute, or Chronic, or Acute on Chronic? @ -Acute Uncomplicated (without systemic symptoms) or Complicated (systemic symptoms)? @ -Complicated Side effects of treatment? @ -no Exacerbation, Progression, or Severe Exacerbation? @ -exacerbation Poses a threat to life or bodily function? How? (Chest pain, [place], [place], pneumonia, PE, COPD, DKA, ARF, appy, cholecystitis, CVA, Diverticulitis, Homicidal, Suicidal, threat to staff... and all critical care pts) @ -yes Reevaluation #5: Differential Seizure: Recurrent seizure disorder, febrile seizure, alcohol withdrawal, stimulants, meningitis, encephalitis, intercranial hemorrhage, intracranial tumor, stroke, eclampsia, thyrotoxicosis, hypocalcemia, hyponatremia, hypernatremia, hypomagnesemia, psychogenic, this is not meant to be an all-inclusive list. Medical Decision Making - Medical Decision Making 24 female recurrent seizure no seizure activity here in the ER patient request CT scan due to inability to get outpatient CT scan there is negative she can be discharged - Radiology Data Radiology results: report reviewed (CT brain negative for acute disease), image reviewed Disposition Clinical Impression: Epileptic seizure, generalized Disposition: HOME SELF-CARE Condition: Fair Instructions (If sedation given, give patient instructions): Recurrent Seizures in Adults (ED), Seizure/Epilepsy Discharge Instructions & Follow-Up Is patient prescribed a controlled substance at d/c from ED?: No Referrals: None,Stated [Primary Care Provider] - 1-2 days Time of Disposition: 01:00
[2024-06-08] MEDS: levETIRAcetam 500 MG TAB PO STA (00:33)
[2024-06-08] MEDS: diazePAM 5 MG TAB PO STA (00:33)
--- NOTE | 2024-06-08 00:56 | CT ---
EXAM: CT Head Without Intravenous Contrast CLINICAL HISTORY: ITS.REASON CT Reason: alex,Hedy TECHNIQUE: Axial computed tomography images of the head/brain without intravenous contrast. CTDI is 49.2 mGy and DLP is 1154.4 mGy-cm. This CT exam was performed using one or more of the following dose reduction techniques: automated exposure control, adjustment of the mA and/or kV according to patient size, and/or use of iterative reconstruction technique. COMPARISON: No relevant prior studies available. FINDINGS: Brain: Unremarkable. No hemorrhage. No significant white matter disease. No edema. Ventricles: Unremarkable. No ventriculomegaly. Bones/joints: Periapical lucency about tooth number #8 concerning for periapical abscess. Recommend dental consult. No acute fracture. Soft tissues: Unremarkable. Sinuses: Unremarkable as visualized. No acute sinusitis. Mastoid air cells: Unremarkable as visualized. No mastoid effusion. IMPRESSION: No evidence of acute intracranial pathology.
[2024-06-08 01:10] VITALS: BP 141/90; PULSE 86; RESP 15; TEMP 98.9
== END 2024-06-08 01:19 | disposition home or self-care (01) ==
LOC: EC 23:45
DX: G40.409 Other generalized epilepsy and epileptic syndromes, not intractable, without status epilepticus (principal); F17.290 Nicotine dependence, other tobacco product, uncomplicated
CPT/HCPCS: 70450; 99284